=== PATIENT | female | born 2005 | race Caucasian/White ===

== ENCOUNTER 2023-01-06 13:42 | Emergency (ER) | payer MEDICAID, SELFPAY ==
[2023-01-06 13:49] VITALS: BP 119/78; PULSE 80; RESP 16; TEMP 36.8; O2SAT 97; BMI 25.9
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
[2023-01-06 14:40] VITALS: BP 119/78; PULSE 80; RESP 16; TEMP 36.8; O2SAT 97
== END 2023-01-06 14:40 | disposition home or self-care (01) ==
PROVIDERS: Emergency Provider Physician Assistant; PCP Nurse Practitioner Family
DX: S09.8XXA Other specified injuries of head, initial encounter (principal); V89.2XXA Person injured in unspecified motor-vehicle accident, traffic, initial encounter
CPT/HCPCS: 99282